=== PATIENT | male | born 1955 | race Caucasian/White ===

== ENCOUNTER 2021-04-01 14:13 | Emergency (ER) | payer OTHER, SELFPAY ==
[2021-04-01 14:23] VITALS: BP 134/71; PULSE 89; RESP 18; TEMP 36.6; O2SAT 95; BMI 26.6
--- NOTE | 2021-04-01 14:25 | ED_ITS ---
HPI - Allergic Reaction <Cheng Leon PA-C - Last Filed: 04/01/21 16:34> General Chief complaint: Recheck/Abnormal Lab/Rx Stated complaint: bee stings at work Time Seen by Provider: 04/01/21 14:23 History of Present Illness HPI narrative: Tyler presents today with chief complaint bee sting to his left arm, right arm and left side of his face while he was at work approximately 45 minutes ago. He reports mild irritation and some itchiness. He denies any thro at tightness, shortness of breath, difficulty swallowing, difficulty breathing, history of allergic reaction or anaphylaxis. He has no other acute concerns or complaints at this time. He has not tried anything to help alleviate his symptoms. Related Data Allergies Allergy/AdvReac Type Severity Reaction Status Date / Time No Known Drug Allergies Allergy Verified 04/01/21 14:23 Review of Systems <Cheng Leon PA-C - Last Filed: 04/01/21 16:34> Review of Systems Narrative: As per HPI Patient History <ALLEN Morales Last Filed: 04/01/21 16:34> Social History Smoking Status: Current every day smoker Exam <ALLEN Morales Last Filed: 04/01/21 16:34> Narrative Exam Narrative: Exam Narrative: Const General: cooperative, healthy appearing, comfortable, no acute distress, well developed and well groomed Nutritional Appearance: average body habitus Orientation: alert and oriented x3 HENMT Head: normal to inspection and atraumatic Ears: hearing grossly normal bilaterally Nose: external nose normal and nares normal Face and sinus: normal facial exam Mouth: No posterior oropharynx erythema or edema noted. Grossly normal in appearance. Neck Neck: normal visual inspection and supple Resp Effort & Inspection: normal respiratory effort, able to speak in complete sentences, no audible wheezes, not labored, no nasal flaring and no respiratory distress, clear to auscultation bilaterally, no stridor. Neuro General: alert, oriented x3, gait normal, tone normal and moves all extremities Cognition: normal cognition Speech: speech normal Gait: normal gait Skin: 2 small areas of erythema approximately 3 cm in diameter, 1 on each arm with what appears to be central envenomation site. Psych Appearance: grossly normal and well kempt Mental Status: mental status grossly normal Speech and Movement: speech and movement normal Mood: congruent mood Affect: normal affect Initial Vital Signs Initial Vital Signs: Vital Signs Temperature 98 F 04/01/21 14:23 Pulse Rate 89 04/01/21 14:23 Respiratory Rate 18 04/01/21 14:23 Blood Pressure 134/71 04/01/21 14:23 Pulse Oximetry 95 04/01/21 14:23 <Lacho Mace DO - Last Filed: 04/01/21 16:58> Initial Vital Signs Initial Vital Signs: Vital Signs Temperature 98 F 04/01/21 14:23 Pulse Rate 89 04/01/21 14:23 Respiratory Rate 18 04/01/21 14:23 Blood Pressure 134/71 04/01/21 14:23 Pulse Oximetry 95 04/01/21 14:23 Course <Cheng Leon PA-C - Last Filed: 04/01/21 16:34> Orders Ordered: Discontinued Medications Diphenhydramine HCl (Diphenhydramine 25 Mg Tablet) 25 mg PO NOW ONE Stop: 04/01/21 14:39 Last Admin: 04/01/21 14:48 Dose: 25 mg Documented by: NEIL Diphenhydramine HCl (Diphenhydramine 25 Mg Tablet) 25 mg PO NOW ONE Stop: 04/01/21 15:00 Last Admin: 04/01/21 15:02 Dose: 25 mg Documented by: NEIL Vital Signs Vital signs: Vital Signs - 8 hr 04/01/21 14:23 04/01/21 14:55 Temperature 98 F Pulse Rate 89 87 Respiratory Rate 18 18 Blood Pressure 134/71 118/69 Pulse Oximetry 95 97 <DO Waqar Huerta Last Filed: 04/01/21 16:58> Orders Ordered: Discontinued Medications Diphenhydramine HCl (Diphenhydramine 25 Mg Tablet) 25 mg PO NOW ONE Stop: 04/01/21 14:39 Last Admin: 04/01/21 14:48 Dose: 25 mg Documented by: HANDER Diphenhydramine HCl (Diphenhydramine 25 Mg Tablet) 25 mg PO NOW ONE Stop: 04/01/21 15:00 Last Admin: 04/01/21 15:02 Dose: 25 mg Documented by: NEIL Vital Signs Vital signs: Vital Signs - 8 hr 04/01/21 14:23 04/01/21 14:55 Temperature 98 F Pulse Rate 89 87 Respiratory Rate 18 18 Blood Pressure 134/71 118/69 Pulse Oximetry 95 97 MDM - Allergic Reaction <Cheng Leon PA-C - Last Filed: 04/01/21 16:34> [facility] Narrative Medical decision making narrative: Patient is well-appearing individual with no previous history of anaphylaxis or allergic reaction. He has 3 bee stings with mild local reactions noted. Times since envenomation has been 1 hour. He denies any throat tightness, shortness of breath, difficulty swallowing, voice changes or any other acute concerns or complaints. I think that antihistamine therapy is appropriate at this time. Strict ER return precautions were discussed with the patient. Patient verbalizes understanding and agrees to plan and has no further concerns at this time. Thank you A [id number] system was used with the dictation of this note. Please disregard any spelling or grammatical errors. Discharge Plan Departure Patient Disposition: Home Clinical Impression: Bee sting Qualifiers: Encounter type: initial encounter Injury intent: accidental or unintentional Qualified Code(s): T63.441A - Toxic effect of venom of bees, accidental (unintentional), initial encounter Activity Restrictions/Additional Instructions: It was nice to meet you this afternoon. Please use Benadryl or other oral antihistamine to help with symptoms. You can also apply ice to the affected areas. I expect symptoms to improve over the next few hours. Please return if you experience any shortness of breath, throat tightness, difficulty swallowing, difficulty breathing or have any other acute concerns or complaints. Thank you Cheng Leon PAC <Lacho Mace DO - Last Filed: 04/01/21 16:58> Cosign ED Attending Cosignature Attestation: Dr Mace Co-Sign Statement: I was available for consultation during this patient's emergency department visit. This chart is signed by myself for administrative purposes only. I did not have direct contact with this patient during this visit. They were seen independently by the APC.
--- NOTE | 2021-04-01 14:39 | PC.NURSE ---
Pt presents PWD, NAD after sustaining 3-4 bee stings. Pt denies hx of bee allergy. Lungs clear, no resp distress. Only reporting minor pain 6/10 to sites of stings. Ice packs applied. at bedside filling out L&I paperwork.
[2021-04-01] MEDS: diphenhydrAMINE 25 MG TABLET PO ×2 (14:48→15:02)
[2021-04-01 14:55] VITALS: BP 118/69; PULSE 87; RESP 18; O2SAT 97
== END 2021-04-01 15:08 | disposition home or self-care (01) ==
PROVIDERS: Emergency Provider Physician Assistant
DX: T63.441A Toxic effect of venom of bees, accidental (unintentional), initial encounter (principal); Y99.0 Civilian activity done for income or pay
CPT/HCPCS: 99283